=== PATIENT | female | born 1960 | race African-American/Black ===

== ENCOUNTER → 2018-04-04 | Day surgery (SDC) | payer OTHER ==
[~2018-04-04] MED LIST: CALTRATE 600 W1 EACH PO; CENTRUM SILVER1 EAC3 PO; PROPOFOL IV EMULSION 10 MG/ML 50 ML VIAL ONE; TYLENOL ARTHRITIS PO; VIT D PO; [UNRECOGNIZED DRUG - OTHER] PO
--- OUTSIDE RECORDS SUMMARY | 2018-04-04 06:56 | XMS REPORT ---
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 Pain in limb Influenza vaccine V04.8 Active Digna Rosa D.O. Need for prophylactic vaccination and inoculation against other viral diseases Intertrigo, candidal 695.89 Active Digna Nuñez.Peg. Other specified erythematous conditions in between buttocks Osteoarthritis, knee, left 715.96 Active Digna Nuñez.Peg. Osteoarthrosis, unspecified whether generalized or localized, involving lower leg Flu vaccine V04.81 Active Digna Nuñez.Gris Need for prophylactic vaccination and inoculation against influenza Hot flashes 627.2 Active Digna Nuñez.Peg. Symptomatic menopausal or female climacteric states every once and while Screening mammogram V76.12 Active Digna Nuñez.Peg. Other screening mammogram Screening, colon cancer V76.51 Active Digna Nuñez.Peg. Screening for malignant neoplasms of colon Tdap V06.1 Active Digna Nuñez.O. Need for prophylactic vaccination and inoculation against [id number], combined [DTP] [DTaP] ALLERGIC RHINITIS 477.9 Active Digna Nuñez.O. Allergic rhinitis, cause unspecified Vaginal dryness 625.8 Active Digna Nuñez.O. Other specified symptoms associated with female genital organs URI 465.9 Active Noreen Ly MD Acute upper respiratory infections of unspecified site Somatic dysfunction, lower extremity 739.6 Active Digna Nuñez.O. Nonallopathic lesions of lower extremities, not elsewhere classified Foot pain, left 729.5 Active Digna Nuñez.O. Pain in limb Allergies, seasonal 477.0 Active Digna Nuñez.O. Allergic rhinitis due to pollen Viral syndrome 079.99 Active Digna Nuñez.O. Unspecified viral infection Vitamin D deficiency 268.9 Active Digna Nuñez.O. Unspecified vitamin D deficiency Fatigue 780.79 Active Digna Nuñez.O. Other malaise and fatigue Colon cancer screening V76.51 Active Digna Nuñez.O. Screening for malignant neoplasms of colon Prediabetes 790.29 Active Digna Nuñez.O. Other abnormal glucose Screening for lipid disorder V77.91 Active Digna Nuñez.O. Screening for lipoid disorders Fibrocystic breast changes 610.1 Active Digna Nuñez.O. Diffuse cystic mastopathy Small bowel obstruction 560.9 Active Digna Nuñez.O. Unspecified intestinal obstruction Hx of small bowel obstruction V12.79 Active Digna Nuñez.O. Personal history of other diseases of digestive system Impaired fasting glucose 790.21 Active Digna Rosa D.O. Impaired fasting glucose Annual exam V72.31 Active Digna Rosa D.O. Routine gynecological examination BMI 31.0-31.9 Active Digna Rosa D.O. Body Mass Index 31.0-31.9, adult Insomnia, chronic 780.52 Active Digna Rosa D.O. Insomnia, unspecified Muscle pain 729.1 Active Digna Rosa D.O. Myalgia and myositis, unspecified Other screening mammogram V76.12 Active Digna Rosa D.O. Other screening mammogram Polyuria 788.42 Active Digna Rosa D.O. Polyuria Weight gain 783.1 Active Digna Rosa D.O. Abnormal weight gain Constipation 564.00 Active Digna Rosa D.O. Constipation, unspecified Osteoarthritis 715.90 Active Digna Rosa D.O. Osteoarthrosis, unspecified whether generalized or localized, involving unspecified site OSTEOPOROSIS 733.00 Active Digna Rosa D.O. Osteoporosis, unspecified Overweight Active Digna Rosa D.O. Overweight Heart murmur, systolic ICD-785.2 Inactive Digna Rosa D.O. Screening for diabetes mellitus V77.1 Inactive Digna Rosa D.O. Screening for diabetes mellitus Hypokalemia ICD-276.8 Inactive Digna Rosa D.O. Anemia ICD-285.9 Inactive Digna Pettit Leonarddaie D.O. Elevated blood pressure ICD-796.2 Inactive Digna Pettit Ehdaie D.O. Hypokalemia ICD-276.8 Inactive Digna Pettit Ehdaie D.O. Heart murmur, systolic 785.2 Resolved Digna Pettit Leonarddadanielle D.O. Undiagnosed cardiac murmurs Hypokalemia 276.8 Resolved Digna Pettit Moe D.O. Hypopotassemia Anemia 285.9 Resolved Digna Pettit Leonarddadanielle D.O. Anemia, unspecified Elevated blood pressure 796.2 Resolved Digna Pettit Moe D.O. Elevated blood pressure reading without diagnosis of hypertension Hypokalemia 276.8 Resolved Digna Pettit Leonarddadanielle D.O. Hypopotassemia Medication List Medication Instructions Start Date Stop Date Generic Name NDC Status Provider Patient Instruction NYSTATIN-TRIAMCINOLONE 665264-5.1 UNIT/GM-% EXTERNAL OINTMENT apply to affected area 4 times a day as needed NYSTATIN-TRIAMCINOLONE 23147428539 Active Dignarohit Valledadanielle D.O. Active FLUTICASONE PROPIONATE 50 MCG/ACT SUSP USE 2 SPRAYS EACH NOSTRIL EVERY DAY FLUTICASONE PROPIONATE 21485347404 Active Digna Wilver Valledaie D.O. Active IBUPROFEN 400 MG ORAL TABLET 1 by mouth every 8 hours as needed IBUPROFEN 77166376023 Active Arun Márquez MD (res) Active VITAMIN D3 5000 UNIT ORAL CAPSULE 1 By Mouth Every day x 2 months, then take 2,000 IU vit D3 over the counter thereafter CHOLECALCIFEROL 09105004196 Active Dignarohit Rosa D.O. Active BLOOD PRESSURE MONITOR 7 DEVICE blood pressure monitoring kit. 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 LORATADINE 10 MG ORAL TABLET 1 By Mouth once a day for allergies LORATADINE 10 MG ORAL TABLET 468386 LORATADINE Inactive TESSALON PERLES 100 MG ORAL CAPSULE 1 by mouth 3 times a day as needed for cough TESSALON PERLES 100 MG ORAL CAPSULE 026694 BENZONATATE Inactive TRAZODONE HCL 50 MG ORAL TABLET 1-2 By Mouth each night as needed for insomnia, may take max of 3 tabs per night if needed TRAZODONE HCL 50 MG ORAL TABLET 668079 TRAZODONE HCL Inactive TYLENOL EXTRA STRENGTH 500 MG ORAL TABLET 2 by mouth every 6 hours as needed TYLENOL EXTRA STRENGTH 500 MG ORAL TABLET 701074 ACETAMINOPHEN Inactive LORATADINE 10 MG ORAL TABLET 1 By Mouth once a day for allergies LORATADINE 03396678467 No Longer Active Arun Márquez MD (res) Active NASONEX 50 MCG/ACT NASAL SUSPENSION 2 sprays each nostril every day MOMETASONE FUROATE 21338603287 No Longer Active Digna Nuñez.Gris Active TESSALON PERLES 100 MG ORAL CAPSULE 1 by mouth 3 times a day as needed for cough BENZONATATE 86099950932 No Longer Active Digna Nuñez.ORell Active TRAZODONE HCL 50 MG ORAL TABLET 1-2 By Mouth each night as needed for insomnia, may take max of 3 tabs per night if needed TRAZODONE HCL 52784328944 No Longer Active Digna Nuñez.ORell Active TYLENOL EXTRA STRENGTH 500 MG ORAL TABLET 2 by mouth every 6 hours as needed ACETAMINOPHEN 84569372266 No Longer Active Digna Nuñez.Gris Active Vital Signs Date Name Value Unit Range Description blood pressure, diastolic 87 mm[Hg] BP sainz blood pressure, systolic 135 mm[Hg] BP sys height E&M 63.50 [in_us] Bdy height pulse rate E&M 62 /min Heart rate respiratory rate E&M 16 /min Resp rate temperature E&M 99.0 [degF] Body temperature weight E&M 182 [lb_av] Weight Measured blood pressure, diastolic 83 mm[Hg] BP sainz blood pressure, systolic 133 mm[Hg] BP sys height E&M 63.50 [in_us] Bdy height pulse rate E&M 60 /min Heart rate respiratory rate E&M 20 /min Resp rate temperature E&M 98.3 [degF] Body temperature weight E&M 183.40 [lb_av] Weight Measured blood pressure, diastolic 77 mm[Hg] BP sainz blood pressure, systolic 127 mm[Hg] BP sys height E&M 63.50 [in_us] Bdy height pulse rate E&M 65 /min Heart rate respiratory rate E&M 20 /min Resp rate temperature E&M 98.0 [degF] Body temperature weight E&M 186 [lb_av] Weight Measured blood pressure, diastolic 78 mm[Hg] BP sainz blood pressure, systolic 124 mm[Hg] BP sys height E&M 63.50 [in_us] Bdy height pulse rate E&M 73 /min Heart rate temperature E&M 98.1 [degF] Body temperature weight E&M 182.40 [lb_av] Weight Measured blood pressure, diastolic 78 mm[Hg] BP sainz blood pressure, systolic 128 mm[Hg] BP sys height E&M 63.50 [in_us] Bdy height pulse rate E&M 63 /min Heart rate respiratory rate E&M 18 /min Resp rate temperature E&M 98.3 [degF] Body temperature weight E&M 180.50 [lb_av] Weight Measured blood pressure, diastolic 84 mm[Hg] BP sainz blood pressure, systolic 137 mm[Hg] BP sys height E&M 63.50 [in_us] Bdy height pulse rate E&M 63 /min Heart rate respiratory rate E&M 16 /min Resp rate temperature E&M 98.2 [degF] Body temperature weight E&M 186 [lb_av] Weight Measured blood pressure, diastolic 84 mm[Hg] BP sainz blood pressure, systolic 128 mm[Hg] BP sys height E&M 63.50 [in_us] Bdy height pulse rate E&M 64 /min Heart rate respiratory rate E&M 16 /min Resp rate temperature E&M 98.3 [degF] Body temperature weight E&M 183.60 [lb_av] Weight Measured Diagnostic Results Date Name Value Unit Range Description Lab Report: CBC With Differential/Platelet, Comp. Metabolic Panel (14), ... - Hematology hematocrit, blood 37.9 % 34.0-46.6 Lab Report: CBC With Differential/Platelet, Comp. Metabolic Panel (14), ... - Chemistry sodium, serum 144 mmol/L 988-628 8774/12/03 thyroid stimulating hormone, serum 1.280 u[iU]/mL 0.450-4.500 Lab Report: CBC With Differential/Platelet, Comp. Metabolic Panel (14), ... - Hematology neutrophils as percent of blood leukocytes 67 % Not Estab. basophils as percent of blood leukocytes 0 % Not Estab. Lab Report: CBC With Differential/Platelet, Comp. Metabolic Panel (14), ... - Chemistry very low density lipoproteins 10 mg/dL 5-40 carbon dioxide, venous blood 26 mmol/L 20-29 chloride, serum 103 mmol/L 96-106 triglyceride, serum, fasting 50 mg/dL 0-149 calcium, serum 9.5 mg/dL 8.7-10.2 urea nitrogen, blood 12 mg/dL 6-24 alanine aminotransferase (SGPT), serum 14 U/L 0-32 Lab Report: CBC With Differential/Platelet, Comp. Metabolic Panel (14), ... - Hematology mean corpuscular hemoglobin, RBC 30.0 pg 26.6-33.0 mean corpuscular hemoglobin concentration, RBC 33.0 G/DL % 31.5-35.7 Lab Report: CBC With Differential/Platelet, Comp. Metabolic Panel (14), ... - Chemistry protein, total, serum 7.4 g/dL 6.0-8.5 alkaline phosphatase, serum 71 U/L 39-117 Lab Report: CBC With Differential/Platelet, Comp. Metabolic Panel (14), ... - Hematology erythrocyte (RBC) count 4.17 X10E6/UL 10*6/mm3 3.77-5.28 hemoglobin, blood 12.5 g/dL 11.1-15.9 Lab Report: CBC With Differential/Platelet, Comp. Metabolic Panel (14), ... - Chemistry Absolute Neutrophils 3.9 X10E3/UL 10*3/uL 1.4-7.0 LDL cholesterol, serum 123 mg/dL 0-99 urea nitrogen/creatinine ratio, serum 18 9-23 Lab Report: CBC With Differential/Platelet, Comp. Metabolic Panel (14), ... - Hematology lymphocytes as percent of blood leukocytes 24 % Not Estab. Lab Report: CBC With Differential/Platelet, Comp. Metabolic Panel (14), ... - Chemistry hemoglobin A1C, blood, as % of total hemoglobin 5.7 % 4.8-5.6 Lab Report: CBC With Differential/Platelet, Comp. Metabolic Panel (14), ... - Hematology mean corpuscular volume, RBC 91 fL 79-97 Lab Report: CBC With Differential/Platelet, Comp. Metabolic Panel (14), ... - Chemistry HDL cholesterol, serum 80 mg/dL >39 Lab Report: CBC With Differential/Platelet, Comp. Metabolic Panel (14), ... - Genetics/fertility eGFR if 112 mL/min/1.73m2 >59 Lab Report: CBC With Differential/Platelet, Comp. Metabolic Panel (14), ... - Hematology basophil count, absolute 0.0 x10E3/uL 0.0-0.2 monocytes as percent of blood leukocytes 7 % Not Estab. Lab Report: CBC With Differential/Platelet, Comp. Metabolic Panel (14), ... - Chemistry globulin, serum 2.9 1.5-4.5 albumin/globulin ratio, serum 1.6 1.2-2.2 creatinine, serum 0.66 mg/dL 0.57-1.00 Estimated Glomerular Filtration Rate (calc) 97 mL/min/1.73m2 >59 vitamin D 25-hydroxy, serum 35.2 ng/mL 30.0-100.0 cholesterol, serum 213 mg/dL 057-227 5577/12/03 bilirubin, serum, total 0.3 mg/dL 0.0-1.2 Lab Report: CBC With Differential/Platelet, Comp. Metabolic Panel (14), ... - Hematology Eosinophil Absolute Count 0.1 X10E3/UL 10*3/uL 0.0-0.4 eosinophils as percent of blood leukocytes 2 % Not Estab. Lab Report: CBC With Differential/Platelet, Comp. Metabolic Panel (14), ... - Chemistry blood glucose, random 105 mg/dL 65-99 aspartate aminotransferase (SGOT), serum 21 U/L 0-40 Lab Report: CBC With Differential/Platelet, Comp. Metabolic Panel (14), ... - Hematology red blood cell distribution width 13.7 % 12.3-15.4 leukocyte count, blood 5.9 X10E3/UL 10*3/mm3 3.4-10.8 Lab Report: CBC With Differential/Platelet, Comp. Metabolic Panel (14), ... - Chemistry potassium, serum 4.4 mmol/L 3.5-5.2 Lab Report: CBC With Differential/Platelet, Comp. Metabolic Panel (14), ... - Hematology monocyte count, blood, automated 0.4 X10E3/UL 10*3/uL 0.1-0.9 Lab Report: CBC With Differential/Platelet, Comp. Metabolic Panel (14), ... - Chemistry albumin, serum 4.5 g/dL 3.5-5.5 immature granulocytes, percentage of total cells, blood 0 % Not Estab. Lab Report: CBC With Differential/Platelet, Comp. Metabolic Panel (14), ... - Hematology platelet count 260 X10E3/UL 10*3/mm3 575-038 7525/12/03 lymphocyte count, blood, automated 1.4 X10E3/UL 10*3/mm3 0.7-3.1 Encounters Date Encounter Provider Code Facility 09:22:02 IOS DEVELOPER Est Patient Detailed - 91394 Digna Rosa D.O. CPT-57477 [facility] 12:13:42 CDT Est Patient Exp Problem - 40609 Digna Rosa D.O. CPT-43347 [facility] 15:21:48 CDT Est Patient Exp Problem - 75594 Digna Rosa D.O. CPT-14631 [facility] 22:33:53 CDT Est Patient Exp Problem - 65998 Noreen Ly MD CPT-96549 [facility] 10:03:41 CDT Est Patient Detailed - 77606 Digna Rosa D.O. CPT-58489 [facility] 12:48:24 IOS DEVELOPER Est Patient Exp Problem - 53774 Digna Pettit Sophiaie D.O. CPT-90601 [facility] 07:21:18 IOS DEVELOPER Est Patient Exp Problem - 67136 Digna Pettit Leonarddaie D.O. CPT-45986 [facility] 15:54:46 IOS DEVELOPER Est Patient Exp Problem - 41845 Digna Pettit Leonarddaie D.O. CPT-73603 [facility] 13:30:19 IOS DEVELOPER Est Patient Exp Problem - 72264 Digna Pettit Moe D.O. CPT-54104 [facility] 15:37:30 IOS DEVELOPER Est Patient Detailed - 84519 Digna Pettit Moe D.O. CPT-93993 [facility] 12:10:37 CDT Est Patient Exp Problem - 04877 [facility] Wilver Sophiaie D.O. CPT-32716 [facility] Procedures Code Procedure Name Date Entry Date Standard Description CPT-35912 Est Patient Well Exam (40 - 64 Yrs) - 59087 09:34:42 IOS DEVELOPER CPT-16985 HEMOGLOBIN A1C - In House 10:03:41 CDT CPT-13335 OSTEOPATHIC MANIPULATIVE [place] 1-2 BODY REGIONS 10:00:47 CDT CPT-07403 Est Patient Well Exam (40 - 64 Yrs) - 85003 09:26:27 CDT CPT-87855 Est Patient Well Exam (40 - 64 Yrs) - 91692 12:44:03 CDT
[2018-04-04 09:45] VITALS: BP 133/81
== END | disposition home or self-care (01) ==
LOC: OR 06:54
PROVIDERS: ATTEND Internal Medicine Gastroenterology
DX: Z12.11 Encounter for screening for malignant neoplasm of colon (principal); D12.2 Benign neoplasm of ascending colon; D12.4 Benign neoplasm of descending colon; D12.5 Benign neoplasm of sigmoid colon; K64.8 Other hemorrhoids; R12 Heartburn; R73.03 Prediabetes; R01.1 Cardiac murmur, unspecified; I45.10 Unspecified right bundle-branch block; Z68.33 Body mass index [BMI] 33.0-33.9, adult
CPT/HCPCS: 45384; 45385; J2704